=== PATIENT | male | born 1935 | race Two or more races ===

== ENCOUNTER 2017-10-03 09:01 | Emergency (ER) | payer MEDICARE, MEDICAID ==
[~2017-10-03] VITALS: Ht 157.5 cm; Wt 61.2 kg
--- NOTE | 2017-10-03 09:10 | NUR ---
[id number] FROM HOME FOR HYPOGLYCEMIA, INITIAL BS 28, 1AMP D50 GIVEN BY EMS. BS CHECKED, NORMAL RESULTS. AWARE. 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 VSS. SAFETY AND COMFORT MEASURES PROVIDED. WILL MONITOR.
--- NOTE | 2017-10-03 09:30 | NUR ---
FOOD TRAY PROVIDED PER MD ORDER. FAMILY Alexys YOUNG.
--- NOTE | 2017-10-03 11:15 | NUR ---
IV removed. Catheter intact and site benign. Pressure and 4x4 applied to site. No bleeding noted.
--- NOTE | 2017-10-03 11:16 | NUR ---
Patient discharged to home in stable condition. Written and verbal after care instructions given. Patient verbalizes understanding of instruction.
[2017-10-03 12:19] VITALS: BP 148/74
== END 2017-10-03 12:19 | disposition home or self-care (01) ==
LOC: ER 09:03
DX: E11.649 Type 2 diabetes mellitus with hypoglycemia without coma (principal); I10 Essential (primary) hypertension; I25.2 Old myocardial infarction
CPT/HCPCS: 82962 ×2; 99283; A4606; Z7610